=== PATIENT | male | born 1945 | race American Indian/Alaskan Native ===

== ENCOUNTER 2022-01-05 11:44 | Outpatient (CLI) | payer MEDICARE ==
--- NOTE | 2022-01-05 14:20 | Cat Scan Report ---
CT ABDOMEN AND PELVIS WITHOUT CONTRAST INDICATION / CLINICAL INFORMATION: R31.29 . Hematuria TECHNIQUE: Axial CT images were obtained through the abdomen and pelvis without IV contrast. Sagittal and rogers l reformatted images. All CT scans at this location are performed using CT dose reduction for ALARA b y means of automated exposure control. COMPARISON: None available. FINDINGS: LOWER CHEST: No significant abnormality. LIVER: No significant abnormality. GALLBLADDER: No significant abnormality. BILE DUCTS: No significant abnormality. PANCREAS: No significant abnormality. SPLEEN: No significant abnormality. ADRENALS: No significant abnormality. RIGHT KIDNEY and URETER: There is a 2.9 cm simple appearing cyst at the upper pole, otherwise unremar kable. LEFT KIDNEY and URETER: There is a 2.5 cm simple appearing cyst at the lower pole. There appears to b e an adjacent punctate calyceal stone best appreciated on image 84, series 2. No ureteral stones or h ydronephrosis. STOMACH and SMALL BOWEL: No significant abnormality. COLON: Mild diverticulosis of the distal colon is evident. No evidence for acute inflammation, obstru ction or obvious mass. APPENDIX: No significant abnormality. PERITONEUM: No free fluid. No free air. No fluid collection. LYMPH NODES: No significant adenopathy. AORTA and ARTERIES: Moderate atherosclerotic calcification without acute abnormality. IVC and VEINS: No significant abnormality. URINARY BLADDER: No significant abnormality. REPRODUCTIVE ORGANS: No significant abnormality. ADDITIONAL FINDINGS: None. SKELETAL SYSTEM: No significant abnormality. IMPRESSION: Bilateral simple appearing renal cysts as described. Punctate nonobstructing stone in the inferior le ft kidney. No ureteral stones or hydronephrosis. Mild diverticulosis of the distal colon. Signer Name: Germán Macias Jr, MD Signed: 01/05/2022 2:15 PM Workstation Name: [id number]
== END 2022-01-05 11:45 | disposition home or self-care (01) ==
LOC: CT 11:44
PROVIDERS: ATTEND Urology
DX: N28.1 Cyst of kidney, acquired (principal); R31.29 Other microscopic hematuria; I70.0 Atherosclerosis of aorta; K57.30 Diverticulosis of large intestine without perforation or abscess without bleeding
CPT/HCPCS: 74176